=== PATIENT | male | born 1965 | race Caucasian/White ===

== ENCOUNTER 2023-08-27 23:22 | Emergency (ER) | payer OTHER, SELFPAY ==
[2023-08-27 23:30] VITALS: BP 121/81
[2023-08-27 23:57] VITALS: BMI 20.9
[2023-08-28] LABS: % Basophils 0.3 % (0-2); % Eosinophils 5.2 % (0-6); % Immature Granulocytes 0.2 % (0-0.5); % Monocytes 11.2 % (1.7-9.3); % Neutrophils 65.1 % (42.2-75.2); Absolute Eosinophils 0.7 10^3/uL (0-0.7); Absolute Lymphocytes 2.4 10^3/uL (1.2-3.4); Absolute Monocytes 1.5 10^3/uL (0.1-0.6); Absolute Neutrophils 8.5 10^3/uL (1.4-6.5); Hematocrit 38.6 % (39.0-52.0); Mean Corp Hgb Conc. 36.3 g/dL (33.0-37.0); Mean Corpuscular Hgb 32.8 pg (27.0-31.0); Mean Corpuscular Volume 90.4 fL (80.0-94.0); Mean Platelet Volume 9.5 fL (7.4-10.4); Nucleated Red Blood Cells % 0 % (-); Platelet Count 198 10^3/uL (130-400); Red Blood Cell Count 4.27 10^6/uL (4.70-6.10); Red Cell Dist. Width 13.2 % (11.5-14.5); White Blood Cell Count 13.1 10^3/uL (4.8-10.8)
--- NOTE | 2023-08-28 00:19 | ED.GENMED ---
History of Present Illness
<ROSALBA Youssef - Last Filed: 08/28/23 00:39>
General
Chief Complaint: Chest Problem
Source: patient
Exam Limitations: none
Time Seen by Provider: 08/28/23 00:00
Travel History
Have you had any contact with someone who has COVID-19?: No
Do you have any symptoms of coronavirus? Fever > 100 degrees, chills, cough, shortness of breath, sore throat, loss of taste or smell, muscle aches, or headache?: No
History of Present Illness
History of Present Illness:
This is a 57 Y/O M with a PMH of PEs that presents to the ED today with complaints of right sided flank pain and right lower back pain that started yesterday morning. Since being here, patient states his pain has become worse. He is now complaining
of right sided CP with radiation to his right shoulder. Pt reports this started since being in the hospital. Pt reports his first PE was after he was immobilized due to an ankle fracture. He complains of constant SOB and occasional palpitations. He
states he is unable to roll onto his back without pain. He is a daily smoker x >25 years. He smokes 1 pack a day. He has a card for medical marijuana. He denies drinking alcohol. He states he is trying to quit smoking.
Denies recent travel or long car rides.
He states he is currently on Xarelto. He did mention that he was off of it for two weeks due to an insurance issue. Pt is also taking fish oil and a vitamin.
Past History
<ROSALBA Youssef - Last Filed: 08/28/23 00:39>
Past History
ED Past Medical History: Psychiatric (Anxiety) and Other (Pulmonary embolism)
ED Past Surgical History: None
Social History
Tobacco: Smoker
Alcohol: None
Personal: Other (Seperated)
Living: alone
Review of Systems
<ST MikaelPA - Last Filed: 08/28/23 00:39>
Review of Systems
Constitutional: Reports no symptoms
EENT: Reports no symptoms
Respiratory: Reports trouble breathing
Cardiac: Reports chest pain and palpitations
: Reports flank pain (Right sided)
Musculoskeletal: Reports no symptoms
Skin: Reports no symptoms
Neurological: Reports no symptoms
Endocrine: Reports no symptoms
Psychiatric: Reports no symptoms
Phy Exam
<Rosie Chin [facility] - Last Filed: 08/28/23 00:39>
Physical Exam
Physical Exam:
+Right-sided flank pain, +Right sided low back pain
+Right sided chest pain
Pt struggles to breathe in deeply, breath sounds are equal B/L
(-)Abdominal pain
General Physical Exam
General Presentation: moderate distress
General age: appears stated age
General Skin: warm and dry
General Habitus: normal
General Mental: alert
Cardiovascular Exam
Cardiovascular Exam: regular rate/rhythm
Pulmonary Exam
Pulmonary Exam: no rales, no rhonchi and no cough
Respiratory Effort: poor respiratory effort
Musculoskeletal Exam
Musculoskeletal Exam: back pain
Course
<Rosie Chin [facility] - Last Filed: 08/28/23 00:39>
Orders/Labs/Results
Orders:
Orders
08/27/23 23:33
Electrocardiogram (*1) Urgent
Reason for Study: Shortness of Breath
EKG- Treatment ONCE
08/27/23 23:53
CBC/With Diff [Complete Blood Count/With Diff] Urgent
CMP [Comprehensive Metabolic Panel] Urgent
Troponin I Urgent
08/28/23 00:30
CT Chest Pe Study Urgent
Reason For Exam: sob/cp/tachy
08/28/23 00:55
Acetaminophen 1000MG/100Ml [Ofirmev] 1,000 mg in 100 ml IV ONCE
Acetaminophen IV Indication:: ED Narcotic Naive Pt-ONCE
08/28/23 01:31
Urinalysis Reflex To Culture Urgent
Date Specimen was Collected: 08/28/23
Time Specimen was Collected: 01:26
Abnormal Lab Results
08/27/23
23:53
WBC 13.1 H 10^3/uL
(4.8-10.8)
RBC 4.27 L 10^6/uL
(4.70-6.10)
Hct 38.6 L %
(39.0-52.0)
MCH 32.8 H pg
(27.0-31.0)
Absolute Neuts (auto) 8.5 H 10^3/uL
(1.4-6.5)
Absolute Monos (auto) 1.5 H 10^3/uL
(0.1-0.6)
Lymphocytes % 18.0 L %
(20.5-51.1)
Monocytes % 11.2 H %
(1.7-9.3)
08/27/23 23:53
08/27/23 23:53
Vital Signs
Initial and Last Documented VS:
Initial Vital Signs
Temp Pulse Resp BP Pulse Ox
98.5 F 82 16 121/81 99
08/27/23 23:30 08/27/23 23:30 08/27/23 23:30 08/27/23 23:30 08/27/23 23:30
Last Documented Vital Signs
Temp Pulse Resp BP Pulse Ox
98.5 F 56 19 121/68 97
08/27/23 23:30 08/28/23 01:32 08/28/23 01:32 08/28/23 01:32 08/28/23 01:32
<Katlyn Romano DO - Last Filed: 08/28/23 02:15>
Orders/Labs/Results
Orders:
Orders
08/27/23 23:33
Electrocardiogram (*1) Urgent
Reason for Study: Shortness of Breath
EKG- Treatment ONCE
08/27/23 23:53
CBC/With Diff [Complete Blood Count/With Diff] Urgent
CMP [Comprehensive Metabolic Panel] Urgent
Troponin I Urgent
08/28/23 00:30
CT Chest Pe Study Urgent
Reason For Exam: sob/cp/tachy
08/28/23 00:55
Acetaminophen 1000MG/100Ml [Ofirmev] 1,000 mg in 100 ml IV ONCE
Acetaminophen IV Indication:: ED Narcotic Naive Pt-ONCE
08/28/23 01:31
Urinalysis Reflex To Culture Urgent
Date Specimen was Collected: 08/28/23
Time Specimen was Collected: 01:26
Abnormal Lab Results
08/27/23
23:53
WBC 13.1 H 10^3/uL
(4.8-10.8)
RBC 4.27 L 10^6/uL
(4.70-6.10)
Hct 38.6 L %
(39.0-52.0)
MCH 32.8 H pg
(27.0-31.0)
Absolute Neuts (auto) 8.5 H 10^3/uL
(1.4-6.5)
Absolute Monos (auto) 1.5 H 10^3/uL
(0.1-0.6)
Lymphocytes % 18.0 L %
(20.5-51.1)
Monocytes % 11.2 H %
(1.7-9.3)
08/27/23 23:53
08/27/23 23:53
Vital Signs
Initial and Last Documented VS:
Initial Vital Signs
Temp Pulse Resp BP Pulse Ox
98.5 F 82 16 121/81 99
08/27/23 23:30 08/27/23 23:30 08/27/23 23:30 08/27/23 23:30 08/27/23 23:30
Last Documented Vital Signs
Temp Pulse Resp BP Pulse Ox
98.5 F 56 19 121/68 97
08/27/23 23:30 08/28/23 01:32 08/28/23 01:32 08/28/23 01:32 08/28/23 01:32
<ROSALBA Youssef - Last Filed: 08/28/23 00:39>
MDM/Problems Addressed
Differential Diagnosis Includes:
PE, DVT, CO, Aortic dissection, AAA
MDM/Problems Addressed:
Right sided flank pain, chest pain, and lower back pain
Chronic conditions affecting care: Other (Hx of PE)
<ROSALBA Youssef - Last Filed: 08/28/23 00:39>
*Critical Care Note
Total Time (30-74mins, 75-104mins- exclusive of procedures): Not Applicable
<Katlyn Romano DO - Last Filed: 08/28/23 02:15>
*Radiology
Radiology exam reviewed: radiology read reviewed
*Pulse Oximetry
Patient hypoxic: no
*EKG
Interpreted by ED Provider?: Yes
Interpretation: normal
Comparison EKG: no changes (Unchanged from previous October 2012)
Rate: normal
Rhythm: sinus
[place]: normal axis
Interval: normal interval
QRS Pattern: normal QRS
Ischemia: no ischemia
*Honing Machine Set Up Operator Interpretation
Rate: normal
Interpretation: normal
Rhythm: sinus
ED Attending Note
<ROSALBA Youssef - Last Filed: 08/28/23 00:39>
-
Portions of this chart may have been created with voice recognition software.� Occasional wrong word or��sound alike� substitutions may have occurred due to the inherent limitations of voice recognition software.
<Katlyn Romano DO - Last Filed: 08/28/23 02:15>
ED Attending Note
Patient seen and examined by attending physician: Yes
I performed the substantive portion of visit, reviewed & personally made and approve the management plan that is documented in note by myself or POLLY.: Yes
I performed a history and physical exam of patient and discussed management with resident, I reviewed resident's note and agree with documented findings and plan of care.: Yes
ED Attending Note:
This is a 57-year-old gentleman who has history of extensive DVT left leg September 2020 accompanied with bilateral PE. DVT related to recent injury to that left leg. He was treated with 6-month course of Xarelto, discontinued February 2021 but then
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
More recently he inadvertently stopped his Xarelto for 2 weeks due to insurance approval issues and lack of supply at his pharmacy. He was able to finally pick up operator his Xarelto prescription yesterday and resumed his daily dosing yesterday.
Since yesterday however he complains of some right superior flank pain that has progressed to right lateral flank to right anterior lower chest discomfort that is pleuritic in nature, worse with deep breath accompanied with mild shortness of
breath/mild dyspnea on exertion. Right-sided chest pain feels very similar to previous PEs. He has had no palpitations, no dizziness nor lightheadedness.
He does note some mild chronic edema left lower extremity but stable and unchanged, he denies leg pain. Mild subjective fevers tonight but denies cough. No nausea or vomiting, no diarrhea or constipation, no dysuria and urgency and or hematuria.
He does continue to smoke cigarettes. He is attempted to quit on several occasions.
GENERAL: 57-year-old gentleman appears mildly older than stated age, somewhat thin build, awake and alert, appears mildly uncomfortable related to pain. Able to speak in full sentences. Intermittently briefly guarding his right lateral flank
region. Moderate odor of tobacco about the patient.
EYE: anicteric
NECK: Supple, nontender, no meningismus, no significant adenopathy.
ENT: posterior pharynx is clear, oral mucosa is moist. No rhinorrhea.
CARDIAC: Regular rate and rhythm. no murmur.
LUNGS: no acute respiratory distress, mildly decreased breath sounds right base otherwise clear to auscultation.
ABDOMEN: Soft, nondistended, without focal tenderness, no r/g, minimal right CVA tenderness with percussion, normoactive BS.
NEUROLOGICAL: Alert and oriented x3, no focal neuro deficits.
SKIN: Warm and dry, normal color, skin intact. No rash.
MUSCULOSKELETAL: No C/C/E. peripheral pulses are full and equal b/l. No palpable tenderness.
PSYCH: Normal and appropriate interaction.
Patient with history of recurrent PEs, inadvertently ran out of Xarelto for 2 weeks, resumed yesterday presents with pleuritic right lower chest discomfort.
Significant concern for recurrent PE. Other consideration is pleural effusion, pulmonary infarct, pneumonia. Less likely renal colic/pyelonephritis.
Labs thus far show mildly elevated white blood cell count of 13.1, normal H&H, normal platelet count, unremarkable chemistries. Troponin is negative.
CTA/PE study is pending.
Hemodynamically stable. Normal pulse ox.
Patient moderately uncomfortable, will trial an IV dose of Tylenol.
08/28/2023 0151 AM
Patient feeling markedly improved after IV Tylenol. Resting comfortably.
Respirations are easy nonlabored. He remains afebrile. Normal pulse ox.
CAT scan shows several subsegmental PEs on the right with a small right lower lobe pulmonary infarct.
Urinalysis is unremarkable.
At this point as patient is comfortable, remains hemodynamically stable, has resumed Xarelto 20 mg since yesterday, no indication for acute hospitalization.
As this is a new, acute PE and patient had been off of his Xarelto recommend initial treatment for PE, Xarelto 15 mg twice daily for 21 days then transition back to 20 mg daily thereafter.
Patient has been provided 3-week sample of Xarelto 15 mg to be taken twice daily. He will then resume his usual Xarelto 20 mg daily thereafter.
I have offered a short course of narcotic pain medication which he declines. He will continue Tylenol as needed for pain.
Patient has been strongly encouraged to quit smoking.
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
Prompt follow-up with PCP as well as billing associate for recheck.
Return precautions discussed.
Discharge Plan
Departure
Patient Disposition: Home (Routine Discharge)
Date of Disposition: 08/28/23
Time of Disposition: 01:54
Patient with high blood pressure during this ER visit?: No
Condition: Good
Discharge Problem:
Recurrent pulmonary emboli
Instructions: Quitting Smoking ED, Pulmonary embolism - Discharge instructions
Prescriptions:
New
Xarelto 15 mg tablet
15 mg PO BID 21 Days Qty: 42 0RF
Discontinued
Xarelto:
5 mg PO DAILY
Referrals:
Deepak Correa MD [Family Provider] - Call in 1-3 days for appt
Stand Alone Forms: Return to Work
Interventions
Interventions:
*Risk Screen - Suicide Last Done: 08/27/23 23:59
*General Assessment Last Done: 08/27/23 23:30
*Neglect/Abuse Screening Last Done: 08/27/23 23:59
ED- Fall Risk Assessment Last Done: 08/27/23 23:59
*ED COVID-19 Vaccine History Last Done: 08/27/23 23:59
ED- Cardiac Assessment Last Done: 08/27/23 23:59
ED- Pulmonary Assessment Last Done: 08/27/23 23:59
Discharge Date and Time
Print Language: GREENLANDIC
[2023-08-28 00:24] LABS: ALT (SGPT) 25 U/L (0-50); AST (SGOT) 26 U/L (17-59); Albumin 4.2 g/dl (3.5-5.0); Alkaline Phosphatase 78 U/L (38-126); Blood Urea Nitrogen 20 mg/dl (9-20); Calcium 9.6 mg/dl (8.4-10.2); Carbon Dioxide 25 mmol/L (22-30); Chloride 105 mmol/L (98-107); Estimated Creatinine Clearance 109 ml/min; Glucose 90 mg/dl (70-99); Potassium 4.3 mmol/L (3.5-5.1); Sodium 137 mmol/L (135-145); Total Bilirubin 0.6 mg/dl (0.2-1.3); Total Protein 7.3 g/dl (6.3-8.2); eGFR > 60.00
[2023-08-28 00:30] LABS: Troponin I < 0.012 ng/ml
[2023-08-28] MEDS: OFIRMEV 100 IV (01:01)
[2023-08-28 01:32] VITALS: BP 121/68
[2023-08-28 01:41] LABS: Urine Albumin Negative (Neg - Trace); Urine Bilirubin Negative (Negative); Urine Character Clear (Clear); Urine Color Yellow; Urine Glucose Negative (Negative); Urine Ketone Negative (Negative); Urine Leukocyte Negative (Negative); Urine Nitrite Negative (Negative); Urine Occult Blood Negative (Negative); Urine Urobilinogen Negative (Neg - 1+)
[2023-08-28 02:00] VITALS: BP 114/64
== END 2023-08-28 02:35 | disposition home or self-care (01) ==
LOC: EMR 23:22
PROVIDERS: EMERGENCY PHYSICIAN Emergency Medicine; FAMILY PHYSICIAN Family Medicine
DX: I26.93 Single subsegmental thrombotic pulmonary embolism without acute cor pulmonale (principal); F17.210 Nicotine dependence, cigarettes, uncomplicated; Z86.711 Personal history of pulmonary embolism; Z86.718 Personal history of other venous thrombosis and embolism
CPT/HCPCS: 99284; 71275; 80053; 81003; 84484; 85025; 93005; Q9967